=== PATIENT | male | born 1995 | race Caucasian/White ===

== ENCOUNTER 2016-08-28 16:12 | Emergency (ER) | payer MEDICAID, OTHER ==
[~2016-08-28] VITALS: Ht 190.5 cm; Wt 100.0 kg
[~2016-08-28 16:12] MED LIST: CLOT60CR TP; IBUP-1827 PO; LEVO750T39 PO
[2016-08-28 16:16] VITALS: BP 152/80; PULSE 108; RESP 16; O2SAT 98
--- NOTE | 2016-08-28 17:01 | ED.REPORT ---
HPI-Extremity Problem Lower Date of Service Aug 28, 2016 ED Provider: Ty Loya PA-C Julien is an otherwise healthy 21-year-old male with chief complaint of right great toe pain. Reports a 5-7 day history of pain, swelling and discharge around the nail of his right great toe. Patient states that he is homeless has difficulty keeping his feet clean and dry. He reports wearing tight shoes recently. Denies history of diabetes, immunosuppression or IV drug use, fever, chills, malaise, abdominal pain, vomiting, diarrhea. Nursing Notes Stated Complaint: R FOOT PAIN Chief Complaint: Skin Rash/Abscess Nursing Notes Reviewed: Yes Allergies: Coded Allergies: No Known Allergies (Unverified Allergy, Unknown, 06/14/15) Scheduled Cephalexin (Keflex) 500 Mg Capsule 500 MG PO QID Clotrimazole (Athlete's Foot) 1 % Cream..g. 60 GM TP BID Levofloxacin (Levofloxacin) 750 Mg Tablet 750 MG PO TID Scheduled PRN Ibuprofen (Ibuprofen) 600 Mg Tablet 600 MG PO QID PRN PRN For Pain General Time Seen by MD: 16:37 Chief Complaint Toe injury right 1 Past Medical History Past Medical History Denies Past Surgical History Denies Family History Noncontributory Smoking History Current Every Day Smoker Social History Alcohol Use: 1-3 per day Drug Use: THC Other Social History: Local resident, Homeless Ambulatory Status Independent Review of Systems Negative unless stated otherwise history of present illness Physical Exam General: Well developed, well nourished, mild distress. Right foot: Toes and forefoot warm, red and dry. Significant tenderness present on the dorsal surface great toe near the nail. Discharge present along both lateral and medial nail fold. Onychomycosis on all toes, most prominently on first. Left foot: Shows an 4 but warm and dry, onychomycosis on all toes most prominently on first, no tenderness detected. Head: Atraumatic, normocephalic. Eyes: No scleral icterus or injection. No discharge. Vision grossly intact. ENT: Voice clear, hearing grossly intact. Skin: Warm and dry. Neurological: Grossly nonfocal. Psychological: alert and oriented. Speech appropriate, linear and logical. Behavior appropriate. Initial Vital Signs Vital Signs (First) Date Time Temp Pulse Resp B/P Pulse Ox O2 Delivery O2 Flow Rate FiO2 08/28/16 16:16 36.6 108 16 152/80 98 Room Air Initial VS: Reviewed Re-Eval/Medical Decision Med Decision/Clinical Course Discussed the case with Dr. Hurd, who recommended a Betadine soak and Keflex. Dr. Hurd examine the patient's toe following a Betadine soak. Feels that excising the toenail should be deferred in favor of treatment with antibiotics at this time. Discharge & Departure Impression: Primary Impression: Ingrown right big toenail Disposition: Home Discharge Condition All VS Reviewed: Yes Condition: Stable Patient Instructions: Ingrown Nail (ED) Additional Instructions: Evaluation for right foot pain emergency department. History and physical reveal an ingrown right great toenail without extensive redness or swelling. There is no evidence of a systemic infection, and your safe to be discharged to home. Keep the affected toe clean, dry and warm as much as possible. We will write a prescription for antibiotics to be taken 4 times a day for 1 week. The pain is best treated with 400 mg of ibuprofen (Advil, Motrin) every 6 hours, or 1000 mg of acetaminophen (Tylenol) every 6 hours. These drugs can be taken at the same time for more severe pain. Call your primary care provider tomorrow to arrange follow-up in about 1 week to make sure this is progressing as expected. Return to emergency department for any new or worsening symptoms including fever or increasing redness, swelling, pain in the toe. Referrals: Rachel Perry PA-C (PCP) EDSupervising Provider for APC: Kiran Hurd MD, Seth PA-C Aug 28, 2016 17:01
[2016-08-28] MEDS ORDERED: CEPH-512 PO (18:10)
== END 2016-08-28 18:20 | disposition home or self-care (01) ==
LOC: SED 16:12
DX: L60.0 Ingrowing nail (principal); F17.200 Nicotine dependence, unspecified, uncomplicated; Z59.0 Homelessness

== ENCOUNTER 2016-09-22 20:34 | Emergency (ER) | payer OTHER ==
[~2016-09-22] VITALS: Ht 177.8 cm; Wt 81.8 kg
[~2016-09-22 20:34] MED LIST changes: +CEPH-512 PO
[2016-09-22 20:40] VITALS: BP 131/65; PULSE 84; RESP 18; O2SAT 95
[2016-09-22 22:15] VITALS: BP 117/63; PULSE 75; RESP 12; O2SAT 98
--- NOTE | 2016-09-22 22:17 | ED.REPORT ---
HPI-General Illness Date of Service Sep 22, 2016 ED Provider: Keaton De Leon MD Patient is a homeless 21 year old male with a history of polysubstance abuse who presents to the ED via EMS after he was found unresponsive in the local [employer] bathroom. The patient's feet were seen under a bathroom stall, feet twitching. Patient arrived to the ED awake and alert, admitting that he had taken both methamphetamine and heroin this evening. He was twitching, with rapid unorganized speech. The patient was later found in the ED bathroom slumped over, again unresponsive. After he was found unresponsive in the ED bathroom, the patient then reported that he is suicidal and that he does not want to live anymore. Since that time the patient has remained sedated in the ED , limiting history that can be obtained from the patient. Nursing Notes Stated Complaint: HEROIN OVERDOSE Chief Complaint: Substance Abuse Nursing Notes Reviewed: Yes Allergies: Coded Allergies: No Known Allergies (Verified Allergy, Unknown, 09/22/16) Scheduled Cephalexin (Keflex) 500 Mg Capsule 500 MG PO QID Clotrimazole (Athlete's Foot) 1 % Cream..g. 60 GM TP BID Levofloxacin (Levofloxacin) 750 Mg Tablet 750 MG PO TID Scheduled PRN Ibuprofen (Ibuprofen) 600 Mg Tablet 600 MG PO QID PRN PRN For Pain General Time Seen by MD: 22:17 Chief Complaint Other (accident heroin overdose, suicidal ideations) Hx Obtained From: Patient, EMS Unable to Obtain Hx: Intoxicated Arrived By: Ambulance Sudden in Onset?: No Onset Occurred: 1 - 4 hours ago Symptom Duration: Since onset Recent Healthcare: No recent doctor visit, No recent hospitalization Past Medical History Past Medical History Denies Past Surgical History Denies Family History Noncontributory Smoking History Current Every Day Smoker Social History uses heroin Alcohol Use: 1-3 per day Drug Use: IV drugs, Meth, THC Other Social History: Local resident, Homeless Ambulatory Status Independent Review of Systems Unable to Obtain ROS Intoxicated (limited) Full Review of Systems Neurologic: Reports: Change LOC Psychiatric: Reports: Suicidal ideation Physical Exam Unable to do psychiatric assessement due to sedation. Vital Signs Vital Signs Date Time Temp Pulse Resp B/P Pulse Ox O2 Delivery O2 Flow Rate FiO2 09/23/16 02:11 73 116/59 100 Simple Mask 09/22/16 22:15 75 12 117/63 98 Room Air 09/22/16 20:40 36.7 84 18 131/65 95 Room Air Initial VS: Reviewed Abdomen / GI: Soft, Non-tender Extremities: Vascular intact, Neuro intact Neurologic: Alert, Nonfocal Alertness: Positive: Sedated, Sleeping but arousable malodorous Head / Eyes: Atraumatic, Normocephalic ENT: Airway patent Neck: Supple, Full range of motion Respiratory / Chest: Breath sounds NL, Breath sounds = bilat, No respiratory distress, No rales, No rhonchi, No wheezing Cardiovascular: Heart rate NL, Regular rhythm, Heart sounds NL, No murmurs Mental Status: Positive: Pharmacologically sedated Interpretation & Diagnostics Lab Results Interpretation Result Diagram: 09/22/16 2340 09/22/16 2340 Test 09/22/16 23:40 White Blood Count 9.0th/mm3 (3.8-10.1) Red Blood Count 4.41mil/mm3 (4.40-5.80) Hemoglobin 12.8g/dL (13.8-17.2) Hematocrit 37.6% (41.0-50.0) Mean Corpuscular Volume 85.3fL (81-100) Mean Corpuscular Hemoglobin 29.0pg (27.0-35.0) Mean Corpuscular Hemoglobin Concent 34.0% (32.0-37.0) Red Cell Distribution Width 12.5% (12.3-15.4) Platelet Count 226bil/L (150-400) Neutrophils (%) (Auto) 75.5% (40-74) Lymphocytes (%) (Auto) 16.2% (14-46) Monocytes (%) (Auto) 5.6% (4-12) Eosinophils (%) (Auto) 2.2% (0-5) Basophils (%) (Auto) 0.3% (0-3) Sodium Level 137mEq/L (134-144) Potassium Level 3.7mEq/L (3.5-5.2) Chloride Level 97mEq/L (97-108) Carbon Dioxide Level 26mmol/L (18-29) Blood Urea Nitrogen 30mg/dL (6-20) Creatinine 0.98mg/dL (0.76-1.27) Estimat Glomerular Filtration Rate 102mL/min (>59) Glucose Level 124mg/dL (60-99) Calcium Level 9.0mg/dL (8.5-10.1) Total Bilirubin 0.5mg/dL (0.0-1.2) Aspartate Amino Transf (AST/SGOT) 54U/L (0-50) Alanine Aminotransferase (ALT/SGPT) 34U/L (0-44) Alkaline Phosphatase 61U/L (25-150) Total Protein 7.1g/dL (6.4-8.4) Albumin 4.1g/dL (3.4-5.0) Thyroid Stimulating Hormone (TSH) 7.110uIU/mL (0.450-4.500) Re-Eval/Medical Decision Med Decision/Clinical Course Patient with history of polysubstance abuse presents after an overdose at [facility] and perhaps again here. The complained of suicidal ideation upon being awakened from unresponsiveness in our public restroom. He has required repetitive stimulation and evaluation to causing him to continue to breathe adequately. That has been effective overnight, and he did not ultimately require Narcan. He awaits a relatively sober awake state to allow evaluation this morning. He signed out at [address] Vidhi Gonzalez: 0680. Rechecked the patient after assuming care from Dr. De Leon. The patient is sleeping but awakes easily with verbal stimulation. The patient remembers being in the [facility] bathroom when someone called an ambulance. He reports injecting heroin last night. On re-examination he is neurovascularly intact, able to walk, and has equal strength to all 4 extremities. He denies current suicidal thoughts. He states he has not slept for 4 days and that is probably why he said he was suicidal last night. He admits to attempting suicide in the past. He does not see a counselor and is not taking any medications. He is currently homeless. 0708: The patient is feeling better and would like to be discharged. He denies suicidal thoughts. He agrees to safety. Source of Hx: Old records Time of Eval: 23:29 Patient Status: Condition improved Re-Evaluation/Progress Note: Patient is still very sedated, going down to the 70s when he falls asleep. He easily awakes. Time of Eval: 03:45 Re-Evaluation/Progress Note: Rechecked the patient. He has slept well in the ED and his O2 sat is no longer dropping. He is still quite sedated. Counseled Regarding: Diagnosis, Lab results, Need for follow-up, When/why to return to ED Discharge & Departure Shift Change Sign-Out Patient Care Transferred: Yes Discussed Complaint(s): Yes Laboratory Evaluation: Back, reviewed by me Response to Therapy: Improved Primary Impression: Accidental heroin overdose Encounter type: initial encounter Qualified Code: T40.1X1A - Poisoning by heroin, accidental (unintentional), initial encounter Additional Impressions: Suicidal ideation Methamphetamine abuse Disposition: Home Discharge Condition All VS Reviewed: Yes Condition: Stable Additional Instructions: Avoid methamphetamine and heroin. This will likely contribute to more medical problems and an untimely . Use the Narcan provided if you or one of your friends overdoses on heroin. You had made statements while you were under the influence of drugs of feeling suicidal. Now that you are clinically sober, you deny feeling suicidal. Follow -up with [facility] or crisis respite for mental health resources. Go to [facility], or [facility] services to discuss long-term opiate cessation. Call 911, return to the ER, go to [facility], or crisis respite if you feel suicidal or have other medical concerns. Referrals: Rachel Perry PA-C (PCP) Care Transferred to: Dr. Gonzalez Care Transferred at: 06:00 Lizbeth Attestation Portions of this note were transcribed by Nanette Mcintyre. Dr. Moises Cárdenas personally performed the history, physical exam and medical decision-making; I reviewed and confirmed the accuracy of the information in the transcribed note. Signed by: Lizbeth Rojas, 09/22/2016 0501 Portions of this note were transcribed by Rachel Glez. Dr. Carlos Cárdenas personally performed the history, physical exam and medical decision-making; I reviewed and confirmed the accuracy of the information in the transcribed note. Signed by: Lizbeth Walter, 09/23/2016 and 0725. copies to: Rachel Perry PA-C, Christopher W MD Sep 22, 2016 22:17 Nanette Mcintyre Sep 22, 2016 23:32 Rachel Glez Sep 23, 2016 07:19
[2016-09-22 23:47] LABS: BASOPHILS % (AUTO) 0.3 % (0-3); EOSINOPHILS % (AUTO) 2.2 % (0-5); MONOCYTES % (AUTO) 5.6 % (4-12); Mean Corpuscular Volume 85.3 fL (81-100); NEUTROPHILS % (AUTO) 75.5 % (40-74); Platelet Count 226 bil/L (150-400)
[2016-09-23 02:11] VITALS: BP 116/59; PULSE 73; O2SAT 100
[2016-09-23] MEDS ORDERED: _Naloxone 2 mg/2 mL 2 Syringe Kit (NASAL USE) NASAL PRN (07:10)
[2016-09-23 09:46] VITALS: BP 144/64; PULSE 70; RESP 20; O2SAT 99
[2016-09-23 09:48] VITALS: BP 144/64; PULSE 70; RESP 20; O2SAT 99
== END 2016-09-23 09:49 | disposition home or self-care (01) ==
LOC: SED 20:34
DX: T40.1X1A Poisoning by heroin, accidental (unintentional), initial encounter (principal); F15.10 Other stimulant abuse, uncomplicated; R45.851 Suicidal ideations; F17.200 Nicotine dependence, unspecified, uncomplicated; Z59.0 Homelessness; X58.XXXA Exposure to other specified factors, initial encounter; Y93.89 Activity, other specified; Y99.8 Other external cause status; Y92.512 Supermarket, store or market as the place of occurrence of the external cause

== ENCOUNTER 2017-03-08 11:25 | Emergency (ER) | payer OTHER ==
[~2017-03-08] VITALS: Ht 188 cm; Wt 100.0 kg
[2017-03-08 11:38] VITALS: BP 122/67; PULSE 92; RESP 17; O2SAT 100
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
[2017-03-08 12:29] LABS: BASOPHILS % (AUTO) 0.5 % (0-3); EOSINOPHILS % (AUTO) 2.2 % (0-5); MONOCYTES % (AUTO) 7.8 % (4-12); Mean Corpuscular Hemoglobin 28.2 pg (27.0-35.0); Mean Corpuscular Volume 83.5 fL (81-100); NEUTROPHILS % (AUTO) 62.7 % (40-74); Platelet Count 255 bil/L (150-400)
--- NOTE | 2017-03-08 12:32 | DRSVH ---
PROCEDURE: X-RAY CHEST ONE VIEW, PORTABLE ([id number]) INDICATIONS: syncope TECHNIQUE: One view of the chest was acquired. COMPARISON: None. FINDINGS: Surgical changes and devices: None. Lungs and pleura: No pleural effusions or pneumothorax. Lungs are clear. Mediastinum: Mediastinal contours appear normal. Heart size is normal. Bones and chest wall: No suspicious bony lesions. Overlying soft tissues appear unremarkable. IMPRESSION: No acute pulmonary process. Dictated by: Sidra Ramirez M.D. on 03/08/2017 at 12:30 Approved by: Sidra Ramirez M.D. on 03/08/2017 at 12:30
--- NOTE | 2017-03-08 12:33 | DRSVH ---
PROCEDURE: CT BRAIN WITHOUT CONTRAST ([id number]) INDICATIONS: head trauma TECHNIQUE: Noncontrast 4.5 mm thick angled axial sections acquired from the foramen magnum to the vertex, with c oronal reformats. COMPARISON: [facility], CT, CT BRAIN WO CON, 06/14/2015, 1:12. FINDINGS: Image quality: Excellent. CSF spaces: Basal cisterns are patent. No extra-axial fluid collections. Ventricles are normal in size and shape. Brain: No midline shift. No intracranial masses or hemorrhage. Dueñas-white matter interface is norm al. Skull and face: Calvarium and visualized facial bones are intact, without suspicious lesions. Small right frontal scalp hematoma. Sinuses: Visualized sinuses and mastoids are clear. IMPRESSION: 1. No acute intracranial process. 2. Small right frontal scalp hematoma. Dictated by: Sidra Ramirez M.D. on 03/08/2017 at 12:31 Approved by: Sidra Ramirez M.D. on 03/08/2017 at 12:31
[2017-03-08 13:24] LABS: APPEARANCE,URINE HAZY (CLEAR,HAZY); COLOR,URINE YELLOW (YELLOW)
[2017-03-08 13:25] LABS: OCCULT BLOOD,URINE NEGATIVE (NEGATIVE); UROBILINOGEN,URINE NORMAL (NORMAL)
[2017-03-08 14:03] VITALS: BP 112/74; PULSE 79; RESP 17; O2SAT 100
[2017-03-08 14:24] VITALS: BP 127/61; PULSE 72; RESP 17; O2SAT 98
== END 2017-03-08 14:25 | disposition home or self-care (01) ==
LOC: SED 11:25 → EDBD 11:25 → SED 14:25
DX: S06.0X9A Concussion with loss of consciousness of unspecified duration, initial encounter (principal); F19.10 Other psychoactive substance abuse, uncomplicated; X58.XXXA Exposure to other specified factors, initial encounter; Y93.55 Activity, bike riding; Y92.9 Unspecified place or not applicable; Y99.9 Unspecified external cause status; F17.200 Nicotine dependence, unspecified, uncomplicated

== ENCOUNTER 2017-04-10 10:02 | Emergency (ER) | payer OTHER ==
[~2017-04-10] VITALS: Ht 190.5 cm; Wt 100.0 kg
[2017-04-10 10:29] VITALS: BP 108/71; PULSE 92; RESP 18; O2SAT 99
--- NOTE | 2017-04-10 10:35 | ED.REPORT ---
HPI-Rash / Abscess Date of Service Apr 10, 2017 ED Provider: Dr. Davey Pt is a 22 year old male with a hx of homelessness, IV drug use presenting to the ED complaining of redness and swelling to the right cheek onset 1 week ago. He denies any fever, chills, nausea, vomiting, or SOB. He states that he thinks he has an abscess. He was initially able to squeeze some pus out of it it is subsequent stopped draining and become larger. He would like to have it drained. Nursing Notes Stated Complaint: POSSIBLE FACIAL INFECTION Chief Complaint: Skin Rash/Abscess Nursing Notes Reviewed: Yes Allergies: Coded Allergies: No Known Allergies (Verified Allergy, Unknown, 04/10/17) Scheduled Cephalexin (Keflex) 500 Mg Capsule 500 MG PO QID Cephalexin (Keflex) 500 Mg Capsule 500 MG PO QID Clotrimazole (Athlete's Foot) 1 % Cream..g. 60 GM TP BID Levofloxacin (Levofloxacin) 750 Mg Tablet 750 MG PO TID Sulfamethoxazole/Trimeth 800-160 mg (Bactrim DS) 1 Each Tablet 1 TABLET PO BID Scheduled PRN Ibuprofen (Ibuprofen) 600 Mg Tablet 600 MG PO QID PRN PRN For Pain General Time Seen by MD: 10:34 Chief Complaint Abscess Hx Obtained From: Patient Arrived By: Walk-in Onset Occurred: 1 week ago Symptom Duration: Since onset Location: : Head/face Quality: Painful Severity: Current: Moderate Severity: Maximum: Moderate Recent Healthcare: No recent doctor visit, No recent hospitalization Similar Sx Previous: Yes Past Medical History Past Medical History Polysubstance abuse Past Surgical History None reported. Family History Noncontributory Smoking History Current Every Day Smoker Social History Alcohol Use: 1-3 per day Drug Use: IV drugs, Meth, THC Other Social History: Local resident, Homeless Ambulatory Status Independent Review of Systems Constitutional: Denies: Chills, Fever Respiratory: Denies: Shortness of breath GI: Denies: Nausea, Vomiting Skin: Reports Rash, Reports Swelling Complete sys rev & neg: except as marked. Physical Exam Initial Vital Signs Vital Signs (First) Date Time Temp Pulse Resp B/P Pulse Ox O2 Delivery O2 Flow Rate FiO2 04/10/17 10:29 36.4 92 18 108/71 99 Room Air Initial VS: Reviewed Respiratory: Breath sounds normal, Clear to auscultation, No respiratory distress Cardiovascular: Intact distal pulses Abdomen / GI: No distention Extremities: Vascular intact, Neuro intact, No swelling, No tenderness Neurologic: Alert, Oriented, Nonfocal Psychiatric: Mood/affect normal, Behavior normal, Normal thought content General/Constitutional: Awake, Alert, No acute distress Skin: Warm, Dry, Intact Abscess 2cm x 2cm. Fluctuant. Crusted purulent drainage but no active drainange right now. Head / Eyes: Atraumatic, Normocephalic, PERRL, EOMI ENT: Atraumatic, Airway patent, Mucous membranes moist, Pharynx NL Procedures Incision & Drainage Abscess Time: 11:52 Procedure Performed by: Allied health pract (SILVIA Loya) Skin Preparation Agent: Hibiclens - Chlorhexidine Incised Abscess with Scalpel: #11 Pus Drained: Medium, Purulent discharge Irrigation: 150 cc Post-Procedure / Complications: Packing placed, Culture obtained, Gram stain ordered, Dressing applied, No complications, Condition improved, Tolerated procedure well, Patient stable Re-Eval/Medical Decision Med Decision/Clinical Course Pt is a 22 year old male with a hx of homelessness, IV drug use presenting to the ED complaining of redness and swelling to the right cheek onset 1 week ago. He denies any fever, chills, nausea, vomiting, or SOB. He states that he thinks he has an abscess. He was initially able to squeeze some pus out of it it is subsequent stopped draining and become larger. He would like to have it drained. Here in the emergency department the patient is afebrile with stable vital signs and examination as above. Of note he has a relatively large pustule about his right cheek. An infraorbital nerve block was performed and the abscess was incised and drained as documented above. The patient tolerated the procedure well. He was prescribed Bactrim and Keflex however before we could provide him with his prescriptions or follow-up instructions he was noted to have eloped from the emergency department. Attempted to contact the patient by telephone in order to have him come back and get his prescriptions and discharge instructions however we were unable to reach him. Re-Evaluation/Progress : Time of Eval: 11:13 Patient Status: Condition improved Re-Evaluation/Progress Note: Discussed plan for discharge. Pt understands and agrees with plan. Counseled Regarding: Diagnosis, Lab results, Need for follow-up, When/why to return to ED Discharge & Departure Impression: Primary Impression: Facial abscess Additional Impressions: IV drug abuse Homelessness At risk for elopement Disposition: Home Discharge Condition All VS Reviewed: Yes Condition: Improved Patient Instructions: Abscess (ED) Additional Instructions: Thank you for seeking care at the emergency room. Our primary goal today in the ED was to evaluate you for any life-threatening conditions. Your evaluation was reassuring. You have an abscess on your right cheek which was drained today in the ER. Take the antibiotics as prescribed. You should follow-up with your primary doctor in the next week if your symptoms are not improving. You should return to the ED immediately if you develop fevers, vomiting, cough, shortness of breath, chest pain, lightheadedness, weakness or any other concerning signs or symptoms. Thank you for letting us partake in your care today. Referrals: [facility] Scribe Attestation Portions of this note were transcribed by Silvina Bates. I, Dr. Davey personally performed the history, physical exam and medical decision-making; I reviewed and confirmed the accuracy of the information in the transcribed note. Signed by: Lizbeth Marquez, 04/10/2017. copies to: [facility] Full Procedures Dental Nerve Block Dental Nerve Block Note: Infraorbital block for incision and drainage on right cheek. Time: 11:47 Block Performed by: Allied health pract (SILVIA Loya) Consent / Setup / Site Prep: Consent from patient, Hand hygiene observed Anesthesia: Infraorbital block Local Anesthesia: Lidocaine 2%, 3cc, 27g needle Post-Procedure / Complications: No complications, Condition improved, Tolerated procedure well, Patient stable, No bleeding Amandeep Davey MD Apr 10, 2017 10:35 SILVINA BATES Apr 10, 2017 11:14 Ty Loya PA-C Apr 10, 2017 12:13
[2017-04-10] MEDS ORDERED: CEPH-512 PO (11:15)
[2017-04-10] MEDS ORDERED: SULF1TAB7 PO (11:15)
[2017-04-10] MEDS ORDERED: Lidocaine 2% 50 mL Inj NERVEBLOCK ONE (11:35)
== END 2017-04-10 12:31 | disposition home or self-care (01) ==
LOC: SED 10:02
DX: L02.01 Cutaneous abscess of face (principal); F19.10 Other psychoactive substance abuse, uncomplicated; F17.200 Nicotine dependence, unspecified, uncomplicated; Z59.0 Homelessness